=== PATIENT | male | born 1980 | race Caucasian/White ===

== ENCOUNTER 2020-12-11 19:39 | Emergency (ER) | payer OTHER ==
[~2020-12-11] VITALS: Ht 182.9 cm; Wt 90.7 kg
[2020-12-11] MEDS ORDERED: ALBUTEROL SULFATE HFA 8GM INHALATION AEROSOL INH ONE ×2 (20:00→20:06)
[2020-12-11] MEDS ORDERED: ACETAMINOPHEN 325 MG TAB PO ONE (20:00)
[2020-12-11] MEDS ORDERED: ACETAMINOPHEN 325 MG TAB ONE (20:05)
== END 2020-12-11 21:49 | disposition home or self-care (01) ==
LOC: ER 20:04
DX: J18.9 Pneumonia, unspecified organism (principal); R50.9 Fever, unspecified; R05 Cough; R06.00 Dyspnea, unspecified
CPT/HCPCS: 71045; 99283